=== PATIENT | female | born 2000 | race Caucasian/White ===

== ENCOUNTER 2019-09-14 21:00 | Observation (INO) ==
[2019-09-14 22:21] LABS: URINE SOURCE CLEAN CATCH
[2019-09-14 22:44] LABS: BASO# 0.22 X1000 (0.0-0.2); BASO% 1.8 % (0.0-0.8); EOS# 0.06 X1000 (0.0-0.7); EOS% 0.5 % (0.0-10.0); HEMATOCRIT 37.3 % (37.0-47.0); HEMOGLOBIN 12.3 g/dL (12.0-16.0); IMM GRAN# 0.03 X1000 (0.0-0.04); IMM GRAN% 0.2 % (0.0-0.5); LYMPH# 2.49 X1000 (1.2-3.4); LYMPH% 19.9 % (20.5-51.1); MCH 29.4 PG (27-31); MCV 89.2 FL (81-99); MONO# 0.96 X1000 (0.11-0.59); MONO% 7.7 % (1.7-9.3); MPV 10.6 FL (7.4-10.4); NEUT# 8.78 X1000 (1.4-6.5); NEUT% 69.9 % (42.2-75.2); PLT 236 X1000 (130-400); RBC 4.18 XMIL (4.2-5.4); RDW 12.1 % (11.5-14.5); WBC 12.54 X1000 (4.8-10.8)
[2019-09-14 22:47] LABS: BILIRUBIN URINE NEGATIVE (NEGATIVE); BLOOD URINE NEGATIVE (NEGATIVE); COLOR YELLOW; GLUCOSE URINE NEGATIVE (NEGATIVE); KETONE URINE NEGATIVE (NEGATIVE); LEUKOCYTES URINE NEGATIVE (NEGATIVE); NITRITE URINE NEGATIVE (NEGATIVE); PROTEIN URINE TRACE mg/dL (NEGATIVE); SP GRAVITY URINE 1.022; TURBIDITY URINE CLEAR (CLEAR); UROBILINOGEN URINE NORMAL (NORMAL)
[2019-09-14 22:48] LABS: AGAP 9; ALB/GLOB RATIO 1.4; ALBUMIN 4.2 g/dL (3.5-5.0); ALKALINE PHOSPHATASE 43 U/L (32-104); BUN 9 mg/dL (8-22); CALCIUM 9.1 mg/dL (8.8-10.2); CHLORIDE 105 mmol/L (98-107); COSMO 280; CREATININE 0.6 mg/dL (0.5-0.9); ESTIMATED GFR > 60; GLUCOSE 97 mg/dL (70-104); GOT 15 U/L (10-30); GPT 15 U/L (10-36); LIPASE 21 U/L (13-60); POTASSIUM 3.7 mmol/L (3.5-5.1); SODIUM 141 mmol/L (136-145); TCO2 27 mmol/L (25-35); TOTAL BILIRUBIN < 0.15 mg/dL (0.20-1.00); TOTAL PROTEIN 7.1 g/dL (6.3-8.3)
[2019-09-14 22:49] LABS: UR EPITHELIAL CELLS <10 /HPF (<10); URINE BACTERIA NEGATIVE /HPF; URINE RBC <10 /HPF (<10); URINE WBC <10 /HPF (<10)
[2019-09-14 22:52] LABS: UR AMPHETAMINES QUAL NONE DETECTED (NONE DETECT); UR BARBITUATES QUAL NONE DETECTED (NONE DETECT); UR BENZODIAZEPIN QUAL NONE DETECTED (NONE DETECT); UR CANNABINOIDS QUAL PRESUMPTIVE POSITIVE (NONE DETECT); UR COCAINE QUAL NONE DETECTED (NONE DETECT); UR METHADONE QUAL NONE DETECTED (NONE DETECT); UR OPIATES QUAL NONE DETECTED (NONE DETECT); UR OXYCODONE QUAL NONE DETECTED (NONE DETECT); UR PCP QUAL NONE DETECTED (NONE DETECT)
--- NOTE | 2019-09-15 00:57 | PROVIDER DOCUMENTATION ---
This chart was entered by Elizabeth Fisher Scribe, acting as scribe for Tanna Jean CRNP. HPI-Female /OB/Breast - General Chief Complaint: Abdominal Pain Stated Complaint: ABD PAIN Time Seen by Provider: 09/14/19 21:22 Source: reports: patient Allergies/Adverse Reactions: Patient Allergies Allergy/AdvReac Type Severity Reaction Status Date / Time Penicillins Allergy Unknown Verified 06/29/19 23:37 - History of Present Illness-Female /OB Nature of Presenting Problem: 19yof presents to ED cc sharp lower abdominal pain and nausea since this evening. Pt denies F/V/D/urinary symptoms. Pt is nontoxic and in no acute distress upon exam. Location of complaint: reports: RLQ, LLQ Quality of Pain: reports: sharp Severity in ED: reports: mild Onset/Duration: reports: this evening Timing: reports: still present Context/Activities at Onset: reports: light activity Vaginal Symptoms: reports: no symptoms Vaginal Bleeding Amount: None Urinary Symptoms: reports: no symptoms Modifying Factors: improves with: nothing Associated Symptoms: reports: nausea Similar Symptoms Previously?: No Recently seen or treated by another doctor?: No - LMP/ History LMP: 08/17/19 : 2 Para: 0 : 1 Review of Systems - Adult - REVIEW OF SYSTEMS - ADULT Constitutional: reports: see HPI. denies: chills, fever, fatique Eyes: reports: no symptoms reported Ears, Nose, Mouth & Throat: reports: no symptoms reported Cardiovascular: reports: no symptoms reported Respiratory: reports: no symptoms reported Gastrointestinal: reports: see HPI, abdominal pain (lower), nausea. denies: constipation, diarrhea, vomiting Genitourinary: reports: see HPI. denies: dysuria, hematuria, incontinence Musculoskeletal: reports: no symptoms reported Integumentary: reports: no symptoms reported Neurological: reports: no symptoms reported Psychiatric: reports: no symptoms reported Endocrine: reports: no symptoms reported Hematologic/Lymphatic: reports: no symptoms reported Allergic/Immunologic: reports: no symptoms reported All Other Systems: Reviewed and Negative Past History - Adult - PAST MEDICAL HISTORY-ADULT Review of Records: reports: Nursing Assessment Review, Medications Reviewed, Social history reviewed & non-contributory. Major Childhood Illnesses: reports: denies history Cardiovascular: reports: denies history Respiratory: reports: denies history Gastrointestinal: reports: denies history Obstetrical/Gynecological: reports: denies history Genitourinary: reports: denies history Musculoskeletal: reports: denies history Neurological: reports: denies history Endocrine/Immune: reports: denies history Other Conditions: reports: denies history - IMMUNIZATION STATUS Childhood Immunizations: See Nurse Assessment Flu Vaccine: See Nurse Assessment - FAMILY HISTORY Family History: reviewed, not pertinent Physical Exam-General - PHYSICAL EXAM-ADULT Initial Vital Signs Reviewed: Yes - CONSTITUTIONAL General Appearance: appears well, alert, no apparent distress. negative: anxious, combative - EYES Eyes: PERRL/EOMI, pink conjunctivae. negative: photophobia - HEAD, EARS, NOSE, MOUTH & THROAT HENMT: normocephalic/atraumatic, moist mucous membranes. negative: angioedema - NECK Neck: non-tender, full range of motion, supple, normal inspection - RESPIRATORY Respiratory: chest non-tender, lungs clear, normal breath sounds, no pleuratic chest pain, no respiratory distress, no accessory muscle use. negative: crackles, rales, rhonchi, stridor, wheezing - CARDIOVASCULAR Cardiovascular: normal peripheral pulses, regular rate, rhythm, no edema, no gallop, no JVD, no murmur. negative: bradycardia, tachycardia - GASTROINTESTINAL (ABDOMEN) Abdominal Exam: normal bowel sounds, soft, no organomegaly, no pulsatile mass, tenderness (RLQ and LLQ). negative: distended, guarding, rigid, rebound - LYMPHATIC Lymphatic: no adenopathy. negative: enlargement - MUSCULOSKELETAL Back Exam: normal inspection, no CVA tenderness, no vertebral tenderness Extremity: normal range of motion, non-tender, normal gait, normal inspection, no pedal edema, no calf tenderness, normal capillary refill. negative: deformity, swelling - SKIN Integumentary: normal color, normal turgor, warm/dry. negative: diaphoresis, jaundice, rash - PSYCHIATRIC Psych/Mental Status: normal mood/affect, oriented x 3. negative: anxious, disheveled Progress - PLAN OF CARE/RESULTS Progress/Plan/Lab Results: Vital Signs - 8 hr 09/14/19 21:14 Temperature 98.2 F Pulse Rate 86 Respiratory Rate 16 Blood Pressure 107/63 O2 Sat by Pulse Oximetry 100 Bedside Urine ED: Urine Bedside Start: 09/14/19 21:26 Freq: ORDERED Status: Active Protocol: Activity Type Activity Date Activity User E-Sign Co-Sign Detail Recorded Client Recorded Date Recorded By Document 09/14/19 22:04 [id number] 09/14/19 22:05 [id number] 09/14/19 22:04 Point of Care [Bedside Point of Care] -Lot # [id number] - Results Positive -Control Line Visible? Yes Laboratory Results - last 24 hr 09/14/19 09/14/19 09/14/19 22:03 22:03 22:14 WBC 12.54 H RBC 4.18 L Hgb 12.3 Hct 37.3 MCV 89.2 MCH 29.4 MCHC 33.0 RDW Std Deviation 12.1 Plt Count 236 MPV 10.6 H Immature Gran % (Auto) 0.2 Neut % (Auto) 69.9 Lymph % (Auto) 19.9 L [place] % (Auto) 7.7 Eos % (Auto) 0.5 Baso % (Auto) 1.8 H Immature Gran # (Auto) 0.03 Neut # (Auto) 8.78 H Lymph # (Auto) 2.49 [place] # (Auto) 0.96 H Eos # (Auto) 0.06 Baso # (Auto) 0.22 H Sodium Potassium Chloride Carbon Dioxide Anion Gap BUN Creatinine Estimated GFR/1.73 m2 BUN/Creatinine Ratio Glucose Calculated Osmolality Calcium Total Bilirubin AST ALT Alkaline Phosphatase Total Protein Albumin Globulin Albumin/Globulin Ratio Lipase Ser , Semi-Qnt Urine Source CLEAN CATCH Urine Color YELLOW Urine Turbidity CLEAR Urine pH 7.0 Ur Specific Cut Off 1.022 Urine Protein TRACE A Ur Glucose (Stick) NEGATIVE Ur Ketones (Stick) NEGATIVE Urine Blood NEGATIVE Urine Nitrite NEGATIVE Urine Bilirubin NEGATIVE Urobilinogen Dipstick NORMAL Urine Leukocytes NEGATIVE Urine WBC (Auto) <10 Urine RBC (Auto) <10 U Epithel Cells (Auto) <10 Urine Bacteria (Auto) NEGATIVE Urine Opiates Screen NONE DETECTED Ur Oxycodone Screen NONE DETECTED Ur Methadone, Qual NONE DETECTED Ur Barbiturates Screen NONE DETECTED Ur Phencyclidine Scrn NONE DETECTED Ur Amphetamines Screen NONE DETECTED U Benzodiazepines Scrn NONE DETECTED Urine Cocaine Screen NONE DETECTED U Cannabinoids Screen PRESUMPTIVE POSITIVE A Blood Type 09/14/19 09/14/19 09/14/19 22:14 22:14 22:14 WBC RBC Hgb Hct MCV MCH MCHC RDW Std Deviation Plt Count MPV Immature Gran % (Auto) Neut % (Auto) Lymph % (Auto) [place] % (Auto) Eos % (Auto) Baso % (Auto) Immature Gran # (Auto) Neut # (Auto) Lymph # (Auto) [place] # (Auto) Eos # (Auto) Baso # (Auto) Sodium 141 Potassium 3.7 Chloride 105 Carbon Dioxide 27 Anion Gap 9 BUN 9 Creatinine 0.6 Estimated GFR/1.73 m2 > 60 BUN/Creatinine Ratio 15 Glucose 97 Calculated Osmolality 280 Calcium 9.1 Total Bilirubin < 0.15 L AST 15 ALT 15 Alkaline Phosphatase 43 Total Protein 7.1 Albumin 4.2 Globulin 2.9 Albumin/Globulin Ratio 1.4 Lipase 21 Ser , Semi-Qnt 6562.0 Urine Source Urine Color Urine Turbidity Urine pH Ur Specific Cut Off Urine Protein Ur Glucose (Stick) Ur Ketones (Stick) Urine Blood Urine Nitrite Urine Bilirubin Urobilinogen Dipstick Urine Leukocytes Urine WBC (Auto) Urine RBC (Auto) U Epithel Cells (Auto) Urine Bacteria (Auto) Urine Opiates Screen Ur Oxycodone Screen Ur Methadone, Qual Ur Barbiturates Screen Ur Phencyclidine Scrn Ur Amphetamines Screen U Benzodiazepines Scrn Urine Cocaine Screen U Cannabinoids Screen Blood Type A POSITIVE Orders Category Date Time Status ED: Urine Bedside ORDERED Care 09/14/19 21:26 Active US OBS COMPLETE < 14 WKS [US] Stat Exams 09/14/19 22:07 Taken ABORH [BBK] Stat Lab 09/14/19 22:14 Completed CBC WITH ELECTRONIC DIFF [HEME] Stat Lab 09/14/19 22:14 Completed COMPREHENSIVE METABOLIC PANEL [CHEM] Stat Lab 09/14/19 22:14 Completed LIPASE [CHEM] Stat Lab 09/14/19 22:14 Completed QUANT TEST Stat Lab 09/14/19 22:14 Completed UA NIMS W/REFLEX CULT [URINALYSIS] Stat Lab 09/14/19 22:03 Completed URINE DRUG SCREEN Stat Lab 09/14/19 22:03 Completed Result Diagrams: 09/14/19 22:14 09/14/19 22:14 - ULTRASOUND (By Radiology) 1 US Study: Transvaginal Impression: See EMR Report (1. NO IUP 2. NORMAL OVARIES 3. POSSIBLE POSTERIOR CUL-DE-SAC MASS OR SOLID STOOL WITHIN THE COLON. AN ECTOPIC CANNOT BE EXCLUDED. REC F/U 4. SAMLL VOLUME FREE FLUID) - CONSULTS/PCP/HOSPITALIST Notification #1 *Consult/PCP/Hospitalist*: DR JAMES -OB Time Discussed: 00:26 Reason/Comments: 0045 DR JAMES AT BEDSIDE Consult Disposition: Will see in ED Departure - Departure Date of Disposition Decision: 09/14/19 Time of Disposition Decision: 00:57 DIAGNOSIS: Ectopic Disposition: ADMITTED INPATIENT 09 Certified Medical Emergency: Emergent Condition: Stable Additional Instructions: ED Follow Up Instructions: You have been treated by a care provider in the Emergency Department. These in structions are being provided to you so you can have an understanding of how to care for yourself upon discharge. Upon discharge from the Emergency Department, you are responsible for making arrangements for follow-up care by a physician of your choice. Take all prescribed medications as directed. Return to the Emergency Department immediately for any new or worsening symptoms. You may call the Physician Referral phone number at [phone] to obtain a list of Physicians who are taking new patients. Referrals and Follow-Ups: None,PCP [Primary Care Provider] - - Critical Care Note This patient required my direct & personal management of CC.: No Attestation - Physician/ MIGEL Attestation Patient care was provided by Advanced Practice Provider:: Yes Advanced Practice Provider:: Tanna Jean Advanced Practice Provider documentation review:: The Mid-level provider documentation, treatment plan and medical decision making was reviewed by the physician who agrees with all treatment and medical decision making by the MLP. The physician spent face to face time with patient:: No Advanced Practice Provider documentation review:: Supervising physician onsite and consulted in the evaluation and care of this patient. The physician did not have a face to face encounter with the patient. This chart was documented by the indicated scribe, (Elizabeth Fisher Scribe) and accurately reflects the services I performed and decisions made by me, Tanna Jean CRNP, as attested by the provider's signature.
[2019-09-15] MEDS ORDERED: NICODERM PATCH TD ONE (00:58)
--- NOTE | 2019-09-15 03:14 | HISTORY AND PHYSICAL ---
ADMITTING PHYSICIAN: Deedee Oliva DO. CHIEF COMPLAINT: Right lower quadrant pain. HISTORY OF PRESENT ILLNESS: A 19-year-old G 2, P-0-0-1-0 at approximately 4 weeks by uncertain LMP , presents to the emergency department with complaint of right lower quadrant pain that started this evening. She describes the pain as sharp and located in her right lower quadrant. She states that the pain lasted for approximately 1 hour and then resolved. She now describes the pain as soreness. She denies any vaginal bleeding. She states she had a bleeding episode in the beginning of August that she atrributes to menses, but had positive home tests in July prior to that period. She denies any fevers, chills, vomiting or diarrhea. Upon arrival to the ER, she was noted to have a positive test and a quantitative beta hCG of 6562. A transvaginal ultrasound was obtained which revealed an empty uterus and a solid appearing structure measuring 2.2 x 2.3 x 2.4 cm in the posterior cul-de-sac, suspicious for an ectopic . REVIEW OF SYSTEMS: Negative except as mentioned in HPI. OBSTETRIC HISTORY: G1 was an elective medical at approximately 7 weeks (2017). G2 is current . GYNECOLOGIC HISTORY: She denies any history of sexually transmitted infections. She has never had a Pap smear. She is sexually active. PAST MEDICAL HISTORY: Denies. MEDICATIONS: None. ALLERGIES: Penicillin causes hives. SURGICAL HISTORY: Denies. SOCIAL HISTORY: She smokes 1 pack per day. She occasionally drinks alcohol. Admits to smoking marijuana every other day. FAMILY HISTORY: Mother with heart disease and hypertension. Sister with anxiety. VITAL SIGNS: Temperature 98.2 degrees, blood pressure 107/63, heart rate 86, respiratory rate 16, O2 saturation 100% on room air. LABORATORY DATA: White blood cell count 12.5, hemoglobin 12.3, hematocrit 37.3, platelets 236,000. Sodium 141, potassium 3.7, chloride 105, carbon dioxide 27, BUN 9, creatinine 0.6. Blood sugar 97, AST 15, ALT 15. Blood type A positive. Urinary drug screen positive for marijuana. Urinalysis with trace protein. Quantitative beta HCG 6562. Height 5 feet 3 inches, weight 110 pounds. BMI 19.5. PHYSICAL EXAM: GENERAL APPEARANCE: Appears well, alert, in no acute distress. CARDIOVASCULAR: Regular rate and rhythm. No tachycardia. RESPIRATORY: Lungs clear. Normal breath sounds. No respiratory distress. ABDOMEN: Soft. Mild tenderness to palpation in the right and left lower quadrant, nondistended. No rebound or guarding. EXTREMITIES: No clubbing, cyanosis, or edema. PSYCH: Normal mood and affect. Alert and oriented x3. TRANSVAGINAL US: Anteflexed uterus measuring 5.5 x 2.8cm. ES measures 1.4mm. No mass, fluid collection, or gestational sac. Right ovary measures 2.3 x 2.8 x 1.8cm, normal appearance with intrinsic color Doppler blood flow. Left ovary measures 3.4 x 2.8 x 1.7 cm, normal appearance with intrinsic color Doppler blood flow. Trace free fluid within the pelvis. In the posterior cul-de-sac posterior to the uterine segment there is a solid appearing structure measuring 2.2 x 2.3 x 2.4cm, separate from the ovaries and without intrinsic blood flow. Impression: No intra-uterine gestation, "empty" uterus. Normal appearing ovaries with intrinsic blood flow. Possible posterior cul-de-sac mass or stool within the colon. An ectopic is not excluded. Small volume free pelvic fluid. ASSESSMENT AND PLAN: A 19-year-old, G2, P0-0-1-0 at approximately 4 weeks by last menstrual period with abdominal pain and suspected ectopic . 1. Hemodynamically stable, afebrile. 2. Quantitative beta-hCG greater than the discriminatory zone of 3500 and thus should be able to see an intrauterine at this gestation. There is trace free fluid in the pelvis and a solid appearing structure in the posterior cul-de-sac measuring 2.2 x 2.3 x 2.4 cm, which is suspicious for an ectopic . 3. Findings discussed with the patient and management options discussed. We will proceed with diagnostic laparoscopy, possible unilateral salpingectomy versus salpingo- oophorectomy for treatment of ectopic . Discussed risks, benefits, and alternatives to surgery. Risks include, but not limited to, bleeding, infection, damage to surrounding abdominal or pelvic organs, possible need for blood transfusion, possible need for reoperation, increased risk of venous thromboembolism, and even . Consent was obtained. 4. NPO. 5. We will admit for observation and plan to perform surgery in the morning. [facility]
[2019-09-15] MEDS ORDERED: SENSORCAINE-MPF 0.5%/EPI 1:200,000 ONE (06:30)
[2019-09-15] MEDS ORDERED: LR 1,000 ML ONE (06:30)
[2019-09-15] MEDS ORDERED: VERSED ONE ×2 (06:35→06:52)
[2019-09-15] MEDS ORDERED: DIPRIVAN 1% ONE (06:36)
[2019-09-15] MEDS ORDERED: FENTANYL ONE (06:36)
[2019-09-15] MEDS ORDERED: XYLOCAINE-MPF 2% ONE (06:38)
[2019-09-15] MEDS ORDERED: STERILE WATER INJ. ONE (06:38)
[2019-09-15] MEDS ORDERED: QUELICIN (DOSE) ONE (06:38)
[2019-09-15] MEDS ORDERED: NORCURON ONE (06:38)
[2019-09-15] MEDS ORDERED: ROBINUL ONE ×2 (06:39→07:37)
--- NOTE | 2019-09-15 07:26 | Diag Imaging Result Doc PS360 ---
EXAM: US OBS COMPLETE < 14 WKS HISTORY: +PREG PELVIC PAIN TECHNIQUE: OB ultrasound COMPARISON: None. FINDINGS: The uterus measures 5.5 x 4.1 x 2.8 cm. The endometrial stripe measures only 1 mm. No uterine mass. No intrauterine . Normal sized ovaries with small follicles. There is a hypoechoic area posterior to the left ovary measuring 2.2 x 2.3 x 2.4 cm. This does contain flow. Trace fluid. IMPRESSION: 1.No intrauterine 2.Possible left-sided ectopic . 3.A preliminary report was given at 12:07 AM Electronically signed by Ton Griffiths 09/15/2019 7:24 AM
[2019-09-15] MEDS ORDERED: ZOFRAN ONE (07:32)
[2019-09-15] MEDS ORDERED: DECADRON ONE (07:32)
[2019-09-15] MEDS ORDERED: NEOSTIGMINE ONE (07:37)
[2019-09-15] MEDS: DILAUDID ONE ×3 (08:11→14:53)
[2019-09-15] MEDS: PHENERGAN ONE ×4 (08:14→14:53)
[2019-09-15] MEDS: DEMEROL ONE ×2 (08:22→14:54)
[2019-09-15] MEDS ORDERED: MORPHINE IV PRN (08:48)
[2019-09-15] MEDS ORDERED: ZOFRAN IV PRN (08:48)
[2019-09-15] MEDS ORDERED: PERCOCET-5 PO PRN (08:48)
[2019-09-15] MEDS ORDERED: PHENERGAN PO PRN (08:48)
[2019-09-15 09:01] VITALS: BP 114/59
--- NOTE | 2019-09-15 20:07 | OPERATIVE NOTE ---
PROCEDURE DATE: 09/15/2019 PREOPERATIVE DIAGNOSES: 1. A 19-year-old 2, para 0-0-1-0 with positive test and ultrasound findings consistent with ectopic . 2. Abdominal pain. 3. Tobacco abuse. POSTOPERATIVE DIAGNOSES: 1. A 19-year-old 2, para 0-0-1-0 with positive test and ultrasound findings consistent with ectopic . 2. Abdominal pain. 3. Tobacco abuse. 4. Partially ruptured right ectopic fallopian tube . PROCEDURE PERFORMED: 1. Diagnostic laparoscopy. 2. Right distal salpingectomy. SURGEON: Emilee Oliva DO SHOE DESIGNER: Lavelle Lam III, MD FINDINGS: Partially ruptured right fallopian tube ectopic . Otherwise normal-appearing uterus, left tube and bilateral ovaries. COMPLICATIONS: None. ANESTHESIA: General. ESTIMATED BLOOD LOSS: 25 mL INTRAVENOUS FLUIDS: 1200 mL URINE OUTPUT: 75 mL SPECIMEN: Right fallopian tube. INDICATIONS AND CONSENT: The patient is a 19-year-old, G2, P0-0-1-0 with positive test and ultrasound findings consistent with an ectopic . Findings were discussed with the patient, with recommendations to undergo diagnostic laparoscopy, with possible unilateral salpingectomy versus unilateral salpingo-oophorectomy. The risks, benefits and alternatives to the above procedure were discussed with the patient. Risks include, but are not limited to, bleeding, infection, damage to surrounding abdominal or pelvic organs, possible need for blood transfusion, possible need for reoperation, increased risk of venous thromboembolism and even . Consent was obtained. DESCRIPTION OF PROCEDURE: The patient was taken to the operating room, where general anesthesia was found to be adequate. She was then prepped and draped in the normal sterile fashion in the dorsal lithotomy position, with feet in Yellofin stirrups. A sponge stick was placed in the vagina, and attention was turned to the abdomen. A 5 mm infraumbilical skin incision was made with a scalpel and a Veress needle placed through the incision into the abdominal cavity. Entry pressure was 4 mmHg and abdominal entry was confirmed with saline drop test. The abdomen was then thoroughly insufflated and a 5 mm trocar inserted under direct visualization using the Guidecentral camera. Upon entry into the abdomen, approximately 25 mL of blood were noted in the posterior cul- de-sac and covering the uterus. The pelvis was examined, and a partially ruptured right fallopian tube was discovered. Next a 10 mm trocar was placed into the left lower quadrant under direct visualization, and a 5 mm trocar placed in the right lower quadrant under direct visualization. The right fallopian tube was then grasped with a grasper, and the tube and contained were removed with the LigaSure device. The right fallopian tube was then removed through the 10 mm port using the EndoCatch and was sent to Pathology. The abdomen was then thoroughly irrigated and hemostasis was noted at the location of the transected fallopian tube. The 10 mm trocar was then removed and the fascia closed with the port closure device using 0 Vicryl. The abdomen was then thoroughly desufflated and the trocars removed. The skin incisions were closed with 4-0 Monocryl in subcuticular fashion, with Dermabond atop. The vaginal sponge stick was removed. All sponge, lap and needle counts were correct x2. She was taken to the recovery room in stable condition.
== END 2019-09-15 14:00 | disposition home or self-care (01) ==
LOC: ED 21:00 → LD 21:00
PROVIDERS: ADMIT Student in an Organized Health Care Education/Training Program; ATTEND Student in an Organized Health Care Education/Training Program